=== PATIENT | male | born 2005 | race African-American/Black ===

== ENCOUNTER 2024-09-22 23:21 | Emergency (ER) | payer OTHER ==
[~2024-09-22] VITALS: Ht 177.8 cm; Wt 99.8 kg
[2024-09-23] MEDS ORDERED: LORazepam 1 MG Tab PO ONE (03:10)
[2024-09-23] MEDS ORDERED: OLANZapine 10 MG Tab PO ONE (03:15)
[2024-09-23] MEDS ORDERED: TRAZ100 PO (03:21)
[2024-09-23] MEDS ORDERED: OLAN10 PO (03:21)
== END 2024-09-23 03:31 | disposition home or self-care (01) ==
LOC: ER 23:21
DX: F31.9 Bipolar disorder, unspecified (principal); Z91.141 Patient's other noncompliance with medication regimen due to financial hardship; Z79.899 Other long term (current) drug therapy
CPT/HCPCS: 99282; A9270